=== PATIENT | female | born 1980 | race Caucasian/White ===

== ENCOUNTER 2017-09-17 12:17 | Emergency (ER) | payer MEDICAID ==
[~2017-09-17 12:17] MED LIST: ASPI325T PO; HYDR-4197 PO
[2017-09-17 12:30] VITALS: BP 107/52; PULSE 75; RESP 16; TEMP 98; O2SAT 96
[2017-09-17] MEDS ORDERED: SULFAMETHOXAZOLE-TRIMETHOPRIM DS 800-160 MG TAB PO ONE (14:00)
[2017-09-17] MEDS ORDERED: CEPHALEXIN MONOHYDRATE 500 MG CAP PO ONE (14:00)
[2017-09-17] MEDS ORDERED: ASPI-183 PO (14:01)
--- NOTE | 2017-09-17 14:03 | PD ---
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 Says this lesion has been present for approximately 1 week and says that she was in the shower today when some pus came out however, says that the area continues to feel fluctuant and believes are still some infectious process in her thigh. She denies any numbness tingling. There is tenderness to palpation of the lesion. Says that she has been feeling somewhat feverish with chills. Says she has a history of sepsis which is another reason why she come to the emergency department for evaluation. Says she has an allergy to azithromycin and ciprofloxacin for antibiotics. 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 Patient does follow specialist as an outpatient. Patient says she also has a history of anxiety and picks her skin. Says that her scars a result of this condition. 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.) Anxiety: Yes Depression: Yes Cardiac Catheterization: Yes Cardiovascular Problems: Yes High Cholesterol: No Chest Pain: No Cerebrovascular Accident: Yes Diabetes: Yes Patient Takes Glucophage: No Diminished Hearing: Yes (LEFT EAR) Endocrine: Yes (INFO FROM MR/ SEE ER REPORTS) GERD: No Headaches: Yes Hepatitis: Yes (HEP C) Hypertension: No Immune Disorder: No Implanted Vascular Access Dvce: No Kidney Stones: Yes Musculoskeletal: Yes (INFO FROM MR/ SEE ER REPORTS) Neurologic: Yes (INFO FROM MR/ SEE ER REPORTS) Psychiatric: Yes Respiratory: Yes (INFO FROM MR/ SEE ER REPORTS) Integumentary: No Immunizations Current: Yes Migraines: No Seizures: No Sleep Apnea: Yes (DOES NOT USE A CPAP) Ulcer: No PNEUMOCCOCAL Vaccine (Year): 2 ?: Not Menopausal: No : 3 Para: 3 Tubal Ligation: Yes Past Surgical History Abdominal Surgery: Yes ( BOWEL RESECTION) Cardiac Surgery: No Section: Yes (X 3) Cholecystectomy: Yes Coronary Artery Bypass Graft: Yes Ear Surgery: No Eye Surgery: No Gynecologic Surgery: Yes (3 C SECTIONS) Neurologic Surgery: Yes (SPINAL FUSION) Pacemaker: No Thoracic Surgery: No Other Surgery: Yes (INFO FROM MR/ SEE ER REPORTS) Social History Alcohol Use: No Tobacco Use: Yes (1 ppd) Substance Use: No (PATIENT DENIES) Allergies-Medications (Allergen,Severity, Reaction): Coded Allergies: azithromycin (Unverified Allergy, Severe, abd pain, 09/17/17) ciprofloxacin (Unverified Allergy, Severe, RASH, 09/17/17) cyclobenzaprine (Unverified Allergy, Severe, hives, 09/17/17) diatrizoate meglumine (Unverified Allergy, Severe, Headache, 09/17/17) SEVERE PRESSURE IN HEAD, FELT LIKE EYE WERE GOING TO POP OUT, FOLDER SEAMER AUTOMATIC STATED TO PT IS IS AN ALLERGIC REACTION gadobenic acid (Unverified Allergy, Severe, Headache, 09/17/17) SEVERE PRESSURE IN HEAD, FELT LIKE EYE WERE GOING TO POP OUT, FOLDER SEAMER AUTOMATIC STATED TO PT IS IS AN ALLERGIC REACTION gadodiamide (Unverified Allergy, Severe, Headache, 09/17/17) SEVERE PRESSURE IN HEAD, FELT LIKE EYE WERE GOING TO POP OUT, FOLDER SEAMER AUTOMATIC STATED TO PT IS IS AN ALLERGIC REACTION gadoteridol (Unverified Allergy, Severe, Headache, 09/17/17) SEVERE PRESSURE IN HEAD, FELT LIKE EYE WERE GOING TO POP OUT, FOLDER SEAMER AUTOMATIC STATED TO PT IS IS AN ALLERGIC REACTION iodixanol (Unverified Allergy, Severe, Headache, 09/17/17) SEVERE PRESSURE IN HEAD, FELT LIKE EYE WERE GOING TO POP OUT, FOLDER SEAMER AUTOMATIC STATED TO PT IS IS AN ALLERGIC REACTION iohexol (Unverified Allergy, Severe, Headache, 09/17/17) SEVERE PRESSURE IN HEAD, FELT LIKE EYE WERE GOING TO POP OUT, FOLDER SEAMER AUTOMATIC STATED TO PT IS IS AN ALLERGIC REACTION diclofenac (Unverified Adverse Reaction, Severe, Bleeding, 09/17/17) etodolac (Unverified Adverse Reaction, Severe, Bleeding, 09/17/17) flurbiprofen (Unverified Adverse Reaction, Severe, Bleeding, 09/17/17) ibuprofen (Unverified Adverse Reaction, Severe, Bleeding, 09/17/17) indomethacin (Unverified Adverse Reaction, Severe, Bleeding, 09/17/17) ketoprofen (Unverified Adverse Reaction, Severe, Bleeding, 09/17/17) ketorolac (Unverified Adverse Reaction, Severe, Bleeding, 09/17/17) naproxen (Unverified Adverse Reaction, Severe, Bleeding, 09/17/17) oxaprozin (Unverified Adverse Reaction, Severe, Bleeding, 09/17/17) Reported Meds & Prescriptions Reported Meds & Active Scripts Active Keflex (Cephalexin) 500 Mg Cap 500 Mg PO Q8H 7 Days Bactrim DS (Sulfamethoxazole-Trimethoprim) 800-160 Mg Tab 1 Tab PO BID 7 Days Reported Aspirin 325 Mg Tab 325 Mg PO DAILY Review of Systems Except as stated in HPI: all other systems reviewed are Neg Physical Exam Narrative GENERAL: Well-nourished, well-developed patient. SKIN: Focused skin assessment warm/dry. Right medial aspect of thigh-5 cm round fluctuant area with central ulceration. No expression of fluid. Erythema limited to the lesion. Diffuse, multiple healed scars HEAD: Normocephalic. EYES: No scleral icterus. No injection or drainage. NECK: Supple, trachea midline. No JVD or lymphadenopathy. CARDIOVASCULAR: Regular rate and rhythm without murmurs, gallops, or rubs. RESPIRATORY: Breath sounds equal bilaterally. No accessory muscle use. MUSCULOSKELETAL: No cyanosis, or edema. R BKA present- unable to palpate pulse (note she says this is normal for her) BACK: Nontender without obvious deformity. No CVA tenderness. 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 Says this lesion has been present for approximately 1 week and says that she was in the shower today when some pus came out however, says that the area continues to feel fluctuant and believes are still some infectious process in her thigh. She denies any numbness tingling. There is tenderness to palpation of the lesion. Says that she has been feeling somewhat feverish with chills. Says she has a history of sepsis which is another reason why she come to the emergency department for evaluation. Says she has an allergy to azithromycin and ciprofloxacin for antibiotics. 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 Patient does follow specialist as an outpatient. Patient says she also has a history of anxiety and picks her skin. Says that her scars a result of this condition. Vital signs stable. Physical exam findings consistent with an abscess versus cellulitis Incision and drainage performed. Patient will receive antibiotics for outpatient use. She received her first dose in the emergency department today. Because patient is a below the knee amputee, crutches were prescribed to avoid using her prosthetic while the lesion is healing. She is advised to follow-up with her primary care physician. Advised to return for wound check if she is unable to follow-up with her primary care physician. Take all medications as prescribed. Return to the emergency department for worsening or persistent symptoms. Procedures Procedure Narrative INCISION AND DRAINAGE OF ABSCESS: The area was prepped and was sterilely draped. A subcutaneous wheal of 1 % Xylocaine without epinephrine with a total number 1 mL was used to anesthetize the area properly. A number 11 scalpel was used to make a 1-cm incision across the area of the abscess. The abscess was drained, complex loculations were broken down, and irrigated with normal saline. Half inch iodoform packing was placed in the wound. Sterile dressing applied. Patient advised to have packing removed in two days. Diagnosis Primary Impression: Abscess Additional Impression: Cellulitis Qualified Codes: L03.115 - Cellulitis of right lower limb Referrals: Primary Care Physician Additional Instructions: Follow up with your primary care physician within 2-3 days. Keep area clean and dry for 24 hours. After 24 hours, you may bathe as normal but dry the area thoroughly. You may use [id number] triple antibiotic ointments for your injury daily. Change dressings daily. You may remove the gauze after 24-48 hours. If you developed increased redness, swelling, or pain return to the emergency department as this could be a sign of infection. Received her first doses of antibiotics while in the emergency department today. Take the next dose tonight. Scripts Cephalexin (Keflex) 500 Mg Cap 500 MG PO Q8H for Infection for 7 Days, #21 CAP 0 Refills Prov: Daniel Putnam MD 09/17/17 Sulfamethoxazole-Trimethoprim (Bactrim DS) 800-160 Mg Tab 1 TAB PO BID for Infection for 7 Days, #14 TAB 0 Refills Prov: Daniel Putnam MD 09/17/17 Disposition: 01 DISCHARGE HOME Condition: Stable Elena Smith Sep 17, 2017 14:03
[2017-09-17] MEDS ORDERED: CEPH-460 PO (14:24)
[2017-09-17] MEDS ORDERED: BACT800T5 PO (14:24)
== END 2017-09-17 15:02 | disposition home or self-care (01) ==
LOC: PHEFT 12:17
DX: L02.415 Cutaneous abscess of right lower limb (principal); L03.115 Cellulitis of right lower limb; F17.200 Nicotine dependence, unspecified, uncomplicated; Z89.511 Acquired absence of right leg below knee
CPT/HCPCS: 10060; 99283; E0113

== ENCOUNTER 2017-11-05 18:41 | Inpatient (IN) | payer MEDICARE, MEDICAID, OTHER ==
[~2017-11-05] VITALS: Ht 182.9 cm; Wt 80.2 kg
[~2017-11-05 18:41] MED LIST changes: +ASPI-183 PO; -ASPI325T PO; +BACT800T5 PO; +CEPH-460 PO; -HYDR-4197 PO
[2017-11-05 19:05] VITALS: BP 129/72; PULSE 90; RESP 18; TEMP 98.3
[2017-11-05] MEDS ORDERED: DILA4TAB10 PO (19:05)
[2017-11-05] MEDS ORDERED: XANA2TAB2 PO (19:05)
--- NOTE | 2017-11-05 21:04 | PD ---
HPI Chief Complaint: Psychiatric Symptoms Time Seen by Provider: 20:13 Travel History International Travel<30 days: No Contact w/Intl Traveler<30days: No Traveled to known affect area: No History of Present Illness HPI 37-year-old white female presents emergency department under [employer] act by [employer]. The patient states that she is increasingly depressed over her medical conditions as well as her substance abuse. She is currently homeless. Patient states that she attempted to overdose on methamphetamine last night but unfortunately she has a very high tolerance to drugs and it did not harm her. She also states that she has intermittent abscesses and performed her own incision and drainage on her left forearm and right flank abscess. She states that she use an X-Acto knife and expressed a large amount of pus. She states that she does these crazy things when she is high on methamphetamine. She denies any other procedures. She does have a history of chronic clotting disorder with multiple, multiple surgeries. She currently denies any fever chills. She suffers from chronic abdominal pain and takes Dilaudid and Xanax for anxiety. Patient also states that she uses IV methamphetamine and IV crack cocaine. No homicidal ideation. She denies any active nausea or vomiting. She has chronic abdominal pain and diarrhea. 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.) Anxiety: Yes Depression: Yes Cardiac Catheterization: Yes Cardiovascular Problems: Yes High Cholesterol: No Chemotherapy: No Chest Pain: No Cerebrovascular Accident: No Diabetes: Yes Diminished Hearing: Yes (LEFT EAR) Endocrine: Yes (INFO FROM MR/ SEE ER REPORTS) GERD: No Headaches: Yes Hepatitis: Yes (HEP C) Hypertension: No Immune Disorder: No Implanted Vascular Access Dvce: No Kidney Stones: Yes Musculoskeletal: Yes (INFO FROM MR/ SEE ER REPORTS) Neurologic: Yes (INFO FROM MR/ SEE ER REPORTS) Psychiatric: Yes Respiratory: No Integumentary: No Immunizations Current: Yes Migraines: No Seizures: No Sleep Apnea: Yes (DOES NOT USE A CPAP) Ulcer: No PNEUMOCCOCAL Vaccine (Year): 2 ?: Not Menopausal: No : 3 Para: 3 Tubal Ligation: Yes Past Surgical History Abdominal Surgery: Yes ( BOWEL RESECTION) Cardiac Surgery: No Section: Yes (X 3) Cholecystectomy: Yes Coronary Artery Bypass Graft: Yes Ear Surgery: No Eye Surgery: No Gynecologic Surgery: Yes (3 C SECTIONS) Hysterectomy: No (TUBAL) Neurologic Surgery: Yes (SPINAL FUSION) Pacemaker: No Thoracic Surgery: No Other Surgery: Yes (INFO FROM MR/ SEE ER REPORTS) Social History Alcohol Use: No Tobacco Use: Yes (1 ppd) Substance Use: No (PATIENT DENIES) Allergies-Medications (Allergen,Severity, Reaction): Coded Allergies: azithromycin (Unverified Allergy, Severe, abd pain, 11/05/17) ciprofloxacin (Unverified Allergy, Severe, RASH, 11/05/17) cyclobenzaprine (Unverified Allergy, Severe, hives, 11/05/17) diatrizoate meglumine (Unverified Allergy, Severe, Headache, 09/17/17) SEVERE PRESSURE IN HEAD, FELT LIKE EYE WERE GOING TO POP OUT, INVESTMENT BANKING ASSOCIATE STATED TO PT IS IS AN ALLERGIC REACTION diphenhydramine (Verified Allergy, Severe, 11/05/17) gadobenic acid (Unverified Allergy, Severe, Headache, 09/17/17) SEVERE PRESSURE IN HEAD, FELT LIKE EYE WERE GOING TO POP OUT, INVESTMENT BANKING ASSOCIATE STATED TO PT IS IS AN ALLERGIC REACTION gadodiamide (Unverified Allergy, Severe, Headache, 09/17/17) SEVERE PRESSURE IN HEAD, FELT LIKE EYE WERE GOING TO POP OUT, INVESTMENT BANKING ASSOCIATE STATED TO PT IS IS AN ALLERGIC REACTION gadoteridol (Unverified Allergy, Severe, Headache, 09/17/17) SEVERE PRESSURE IN HEAD, FELT LIKE EYE WERE GOING TO POP OUT, INVESTMENT BANKING ASSOCIATE STATED TO PT IS IS AN ALLERGIC REACTION iodixanol (Unverified Allergy, Severe, Headache, 09/17/17) SEVERE PRESSURE IN HEAD, FELT LIKE EYE WERE GOING TO POP OUT, INVESTMENT BANKING ASSOCIATE STATED TO PT IS IS AN ALLERGIC REACTION iohexol (Unverified Allergy, Severe, Headache, 09/17/17) SEVERE PRESSURE IN HEAD, FELT LIKE EYE WERE GOING TO POP OUT, INVESTMENT BANKING ASSOCIATE STATED TO PT IS IS AN ALLERGIC REACTION NSAIDS (Non-Steroidal Anti-Inflamma (Verified Allergy, Unknown, 11/05/17) diclofenac (Unverified Adverse Reaction, Severe, Bleeding, 09/17/17) etodolac (Unverified Adverse Reaction, Severe, Bleeding, 09/17/17) flurbiprofen (Unverified Adverse Reaction, Severe, Bleeding, 09/17/17) ibuprofen (Unverified Adverse Reaction, Severe, Bleeding, 09/17/17) indomethacin (Unverified Adverse Reaction, Severe, Bleeding, 09/17/17) ketoprofen (Unverified Adverse Reaction, Severe, Bleeding, 09/17/17) ketorolac (Unverified Adverse Reaction, Severe, Bleeding, 09/17/17) naproxen (Unverified Adverse Reaction, Severe, Bleeding, 09/17/17) oxaprozin (Unverified Adverse Reaction, Severe, Bleeding, 09/17/17) Reported Meds & Prescriptions Reported Meds & Active Scripts Active Keflex (Cephalexin) 500 Mg Cap 500 Mg PO Q8H 7 Days Bactrim DS (Sulfamethoxazole-Trimethoprim) 800-160 Mg Tab 1 Tab PO BID 7 Days Reported Dilaudid (Hydromorphone HCl) 4 Mg Tab 4 Mg PO Q6H PRN Xanax (Alprazolam) 2 Mg Tab 2 Mg PO Q8H PRN Aspirin 325 Mg Tab 325 Mg PO DAILY Review of Systems General / Constitutional: No: Fever Eyes: No: Visual changes HENT: No: Headaches Cardiovascular: No: Chest Pain or Discomfort Respiratory: No: Shortness of Breath Gastrointestinal: Positive: Diarrhea, Abdominal Pain Genitourinary: No: Dysuria Musculoskeletal: Positive: Arthralgias, Pain Skin: Positive Rash Neurologic: No: Weakness Psychiatric: Positive: Anxiety, Depression, Suicidal Ideations, Mood Disorder, Substance Abuse, No: Disorder of Thought, Homicidal Ideation Endocrine: No: Polydipsia Hematologic/Lymphatic: No: Easy Bruising Physical Exam Narrative GENERAL: Well-nourished, well-developed patient. SKIN: Warm and dry. Patient has multiple scabs from picking. She has a abscess to her left dorsal forearm which she had performed incision and drainage on. This is been decompressed. She also has an incision on her right flank. There is no drainage. Minimal erythema. Patient also has a small nonhealing superficial dermal lesion to the right lower leg just below the knee where her prosthesis attaches. There is no signs of infection. HEAD: Normocephalic and atraumatic. EYES: No scleral icterus. No injection or drainage. ENT: No nasal drainage noted. Mucous membranes pink. Airway patent. NECK: Supple, trachea midline. Moves head freely without obvious discomfort. CARDIOVASCULAR: Regular rate and rhythm without murmurs, gallops, or rubs. RESPIRATORY: Breath sounds equal bilaterally. No accessory muscle use. GASTROINTESTINAL: Abdomen soft, non-tender, nondistended. EXTREMITIES: No cyanosis or edema. Below the knee amputation on the right BACK: Nontender without obvious deformity. No CVA tenderness. NEURO: Patient is alert and oriented. no sensorimotor deficits. Nonfocal. Normal speech. PSYCH: No delusions. No auditory or visual hallucinations. Data Data Last Documented VS Vital Signs Date Time Temp Pulse Resp B/P (MAP) Pulse Ox O2 Delivery O2 Flow Rate FiO2 11/06/17 02:22 73 20 106/53 (70) 98 Room Air 11/05/17 19:05 98.3 Orders Orders Complete Blood Count With Diff (11/05/17 20:07) Comprehensive Metabolic Panel (11/05/17 20:07) Thyroid Stimulating Hormone (11/05/17 20:07) Psych Screen (11/05/17 20:07) Drug Screen, Random Urine (11/05/17 20:07) Alcohol (Ethanol) (11/05/17 20:07) Salicylates (Aspirin) (11/05/17 20:07) Tylenol (Acetaminophen) (11/05/17 20:07) Sulfamet-Trimeth Ds 800-160 Mg (Bactrim (11/05/17 21:15) Cephalexin (Keflex) (11/05/17 21:15) Resp Lab Draw Arterial Punctur (11/05/17 ) Lorazepam (Ativan) (11/05/17 22:15) Tetanus/Diphtheria Tox Adult (Tetanus/Di (11/05/17 22:15) Alprazolam (Xanax) (11/05/17 22:45) Hydromorphone (Dilaudid) (11/05/17 23:30) Diet Regular Basic (11/06/17 Breakfast) Labs Laboratory Tests Test 11/05/17 19:57 11/05/17 21:44 Urine Opiates Screen POS Urine Barbiturates Screen NEG Urine Amphetamines Screen POS Urine Benzodiazepines Screen NEG Urine Cocaine Screen POS Urine Cannabinoids Screen NEG White Blood Count 7.2 TH/MM3 Red Blood Count 3.71 MIL/MM3 Hemoglobin 11.2 GM/DL Hematocrit 33.7 % Mean Corpuscular Volume 90.9 FL Mean Corpuscular Hemoglobin 30.1 PG Mean Corpuscular Hemoglobin Concent 33.1 % Red Cell Distribution Width 14.2 % Platelet Count 454 TH/MM3 Mean Platelet Volume 7.1 FL Neutrophils (%) (Auto) 66.6 % Lymphocytes (%) (Auto) 21.2 % Monocytes (%) (Auto) 7.6 % Eosinophils (%) (Auto) 3.5 % Basophils (%) (Auto) 1.1 % Neutrophils # (Auto) 4.8 TH/MM3 Lymphocytes # (Auto) 1.5 TH/MM3 Monocytes # (Auto) 0.5 TH/MM3 Eosinophils # (Auto) 0.3 TH/MM3 Basophils # (Auto) 0.1 TH/MM3 CBC Comment DIFF FINAL Differential Comment Blood Urea Nitrogen 8 MG/DL Creatinine 0.96 MG/DL Random Glucose 117 MG/DL Total Protein 8.5 GM/DL Albumin 3.2 GM/DL Calcium Level 8.7 MG/DL Alkaline Phosphatase 128 U/L Aspartate Amino Transf (AST/SGOT) 24 U/L Alanine Aminotransferase (ALT/SGPT) 21 U/L Total Bilirubin 0.3 MG/DL Sodium Level 135 MEQ/L Potassium Level 3.6 MEQ/L Chloride Level 101 MEQ/L Carbon Dioxide Level 24.0 MEQ/L Anion Gap 10 MEQ/L Estimat Glomerular Filtration Rate 65 ML/MIN Thyroid Stimulating Hormone 3rd Gen 0.945 uIU/ML Salicylates Level 2.8 MG/DL Acetaminophen Level LESS THAN 2.0 MCG/ML Ethyl Alcohol Level LESS THAN 3 MG/DL MDM Medical Decision Making Medical Screen Exam Complete: Yes Emergency Medical Condition: Yes Medical Record Reviewed: Yes Interpretation(s) Laboratory Tests Test 11/05/17 19:57 11/05/17 21:44 Urine Opiates Screen POS Urine Barbiturates Screen NEG Urine Amphetamines Screen POS Urine Benzodiazepines Screen NEG Urine Cocaine Screen POS Urine Cannabinoids Screen NEG White Blood Count 7.2 TH/MM3 Red Blood Count 3.71 MIL/MM3 Hemoglobin 11.2 GM/DL Hematocrit 33.7 % Mean Corpuscular Volume 90.9 FL Mean Corpuscular Hemoglobin 30.1 PG Mean Corpuscular Hemoglobin Concent 33.1 % Red Cell Distribution Width 14.2 % Platelet Count 454 TH/MM3 Mean Platelet Volume 7.1 FL Neutrophils (%) (Auto) 66.6 % Lymphocytes (%) (Auto) 21.2 % Monocytes (%) (Auto) 7.6 % Eosinophils (%) (Auto) 3.5 % Basophils (%) (Auto) 1.1 % Neutrophils # (Auto) 4.8 TH/MM3 Lymphocytes # (Auto) 1.5 TH/MM3 Monocytes # (Auto) 0.5 TH/MM3 Eosinophils # (Auto) 0.3 TH/MM3 Basophils # (Auto) 0.1 TH/MM3 CBC Comment DIFF FINAL Differential Comment Blood Urea Nitrogen 8 MG/DL Creatinine 0.96 MG/DL Random Glucose 117 MG/DL Total Protein 8.5 GM/DL Albumin 3.2 GM/DL Calcium Level 8.7 MG/DL Alkaline Phosphatase 128 U/L Aspartate Amino Transf (AST/SGOT) 24 U/L Alanine Aminotransferase (ALT/SGPT) 21 U/L Total Bilirubin 0.3 MG/DL Sodium Level 135 MEQ/L Potassium Level 3.6 MEQ/L Chloride Level 101 MEQ/L Carbon Dioxide Level 24.0 MEQ/L Anion Gap 10 MEQ/L Estimat Glomerular Filtration Rate 65 ML/MIN Thyroid Stimulating Hormone 3rd Gen 0.945 uIU/ML Salicylates Level 2.8 MG/DL Acetaminophen Level LESS THAN 2.0 MCG/ML Ethyl Alcohol Level LESS THAN 3 MG/DL Differential Diagnosis MDM: High Differential diagnoses: Schizophrenia, schizoaffective disorder, bipolar, anxiety, depression, adjustment reaction, mood disorder NOS, ODD, depressive disorder NOS, psychosis NOS, substance induced mood disorder, infection, electrolyte abnormality, malingering. Narrative Course Mental health screening discussed with the patient. Psychiatric screen ordered. The patient will be continued on her Keflex and Bactrim. She has performed her own incision and drainage of abscesses. Patient also has reservations regarding her chronic pain and getting her Dilaudid and Xanax. Diagnosis Primary Impression: Medical clearance for psychiatric admission Additional Impressions: Skin abscess Qualified Codes: L02.91 - Cutaneous abscess, unspecified IV drug abuse Condition: Nj Gutierrez Nov 05, 2017 21:04
[2017-11-05] MEDS ORDERED: SULFAMETHOXAZOLE-TRIMETHOPRIM DS 800-160 MG TAB PO ONE (21:15)
[2017-11-05] MEDS ORDERED: CEPHALEXIN MONOHYDRATE 500 MG CAP PO ONE (21:15)
[2017-11-05 22:03] LABS: AUTOMATED NEUTROPHIL # 4.8 TH/MM3 (1.8-7.7); BASOPHIL # 0.1 TH/MM3 (0-0.2); BASOPHIL % 1.1 % (0.0-2.0); EOSINOPHIL # 0.3 TH/MM3 (0-0.4); EOSINOPHIL % 3.5 % (0.0-4.0); HEMATOCRIT 33.7 % (35.0-46.0); HEMOGLOBIN 11.2 GM/DL (11.6-15.3); LYMPH % 21.2 % (9.0-44.0); LYMPHOCYTE # 1.5 TH/MM3 (1.0-4.8); MEAN CELL VOLUME 90.9 FL (80.0-100.0); MEAN CORPUSCULAR HEMOGLOBIN 30.1 PG (27.0-34.0); MEAN CORPUSCULAR HGB CONC 33.1 % (32.0-36.0); MEAN PLATELET VOLUME 7.1 FL (7.0-11.0); MONO % 7.6 % (0.0-8.0); MONOCYTE # 0.5 TH/MM3 (0-0.9); NEUT % 66.6 % (16.0-70.0); PLATELET COUNT 454 TH/MM3 (150-450); RED BLOOD COUNT 3.71 MIL/MM3 (4.00-5.30); RED CELL DISTRIBUTION WIDTH 14.2 % (11.6-17.2); WHITE BLOOD COUNT 7.2 TH/MM3 (4.0-11.0)
[2017-11-05] MEDS ORDERED: LORazepam 2 MG TAB PO ONE (22:15)
[2017-11-05] MEDS ORDERED: TETANUS/DIPHTHERIA TOXOID ADULT 0.5 ML VIAL IM ONE (22:15)
[2017-11-05 22:27] LABS: ACETAMINOPHEN LESS THAN 2.0 MCG/ML (10.0-30.0); ALBUMIN 3.2 GM/DL (3.4-5.0); ALKALINE PHOSPHATASE 128 U/L (45-117); ALT (GPT) 21 U/L (10-53); AST (GOT) 24 U/L (15-37); BLOOD UREA NITROGEN 8 MG/DL (7-18); CALCIUM 8.7 MG/DL (8.5-10.1); CHLORIDE 101 MEQ/L (98-107); CREATININE 0.96 MG/DL (0.50-1.00); GLOMERULAR FILTRATION RATE 65 ML/MIN (>89); GLUCOSE,RANDOM 117 MG/DL (74-106); SODIUM (NA) 135 MEQ/L (136-145); TOTAL BILIRUBIN ADULT 0.3 MG/DL (0.2-1.0); TOTAL PROTEIN 8.5 GM/DL (6.4-8.2)
[2017-11-05] MEDS ORDERED: ALPRAZolam 1 MG TAB PO ONE (22:45)
[2017-11-05] MEDS ORDERED: HYDROmorphone HCL 2 MG TAB PO ONE (23:30)
[2017-11-06 02:22] VITALS: BP 106/53; PULSE 73; RESP 20; O2SAT 98
[2017-11-06] MEDS ORDERED: FLUMAZENIL 0.5 MG/5 ML VIAL IV PUSH PRN (08:00)
[2017-11-06] MEDS ORDERED: NICOTINE 21 MG/24 HR PATCH T-DERMAL PRN (08:00)
[2017-11-06] MEDS ORDERED: ONDANSETRON ODT 4 MG TAB PO PRN (08:00)
[2017-11-06] MEDS ORDERED: ALUMINUM/MAGNESIUM/SIMETH 30 ML CUP PO PRN (08:00)
[2017-11-06] MEDS ORDERED: BENZTROPINE MESYLATE 1 MG TAB PO PRN (08:00)
[2017-11-06] MEDS ORDERED: ACETAMINOPHEN 325 MG TAB PO PRN (08:00)
[2017-11-06] MEDS ORDERED: cloNIDine HCL 0.1 MG TAB PO PRN (08:00)
[2017-11-06] MEDS ORDERED: BENZTROPINE MESYLATE 2 MG/2 ML VIAL IM PRN (08:00)
[2017-11-06] MEDS ORDERED: LORazepam 2 MG/ML VIAL IM PRN ×3 (08:00)
[2017-11-06] MEDS ORDERED: LOPERAMIDE HCL 2 MG CAP PO PRN (08:00)
[2017-11-06] MEDS ORDERED: LORazepam 1 MG TAB PO PRN (08:00)
[2017-11-06] MEDS ORDERED: MAGNESIUM HYDROXIDE SUSP 30 ML CUP PO PRN (08:00)
--- NOTE | 2017-11-06 08:06 | HHI.HP ---
Provisional Diagnosis Admission Date 11/06/2017 [place]. 1. Adjustment disorder with depressed mood Rule out drug-induced mood disorder Rule out malingering for controlled substances Rule out primary mood disorder 2. Polysubstance abuse [place] II. Deferred Certification of Person's Competence To Provide Express and Informed Consent I have personally examined Haily Bowden , a person being served at [facility] on, Nov 06, 2017 07:43. Express and informed consent means consent voluntarily given in writing, by a competent person, after sufficient explanation and disclosure of the subject matter involved to enable the person to make a knowing and willful decision without any element of force, fraud, deceit, duress, or other form of constraint or coercion. This person is 18 years of age or older, is not now known to be incompetent to consent to treatment with a guardian advocate, and does not have a health care surrogate or proxy currently making medical treatment decisions. I have found this person to be one of the following: [x] Competent to provide express and informed consent, as defined above, for voluntary admission to this facility and is competent to provide express and informed consent for treatment. He/she has the consistent capacity to make well reasoned, willful, and knowing decisions concerning his or her medical or mental health treatment. The person fully and consistently understands the purpose of the admission for examination/placement and is fully capable of personally exercising all rights assured [place] [] Incompetent to provide express and informed consent to voluntary admission, and this is incompetent to provide express and informed consent to treatment. The person must be transferred to involuntary status and a petition for a guardian advocate filed with the Circuit Court. [] Refusing to provide express and informed consent to voluntary admission but is competent to provide express and informed consent for treatment. The person must be discharged or transferred to involuntary status. Form shall be completed within 24 hours of a person's arrival at the receiving facility and filed in the clinical record of each person: 1. Admitted on a voluntary basis 2. Permitted to provide express and informed consent to his/her own treatment 3. Allowed to transfer from involuntary to voluntary status 4. Prior to permitting a person to consent to his or her own treatment after having been previously found incompetent to consent to treatment. History of Present Illness Capacity: Has Capacity Psych Chief Complaint: Depression, SI HPI Ms. Bowden is a 37-year-old female with a reported history of bipolar disorder and substance use issues who presents under a [place] act by law enforcement alleging suicidal ideation. Patient's urine toxicology was positive for opiates , amphetamines and cocaine. Reviewing the electronic medical record, I note that the patient was seen most recently by the psychiatric nurse practitioner in 2016. Patient seen and examined. Chart reviewed. Case discussed with nursing staff. On my examination today, the patient is somewhat medication seeking for controlled substances. Presentation is somewhat manipulative. She appears quite dysphoric though and says "I am exceptionally depressed right now. I have no desire to continue. I am tired of hurting right now." She says that she tried to overdose by snorting 1 g of heroin 2 days ago in a reported suicide attempt. Patient notes that she is "quite pissed off that I woke up." She endorses ongoing suicidal ideation but denies any urge to hurt herself on the inpatient unit. She says that she is coming here to look for help for her psychiatric condition. No hypomanic or manic symptoms now. She denies any audiovisual hallucinations. She does say that she struggles with some intermittent paranoia but says that this comes with using methamphetamine. Remainder of the psychiatric ROS is negative. Patient has chronic pain complaints but no acute physical complaints. Past psychiatric history: The patient reports a history of bipolar disorder. She is not under the care of an outpatient psychiatrist presently. Most recent psychiatric admission was reportedly a few years ago. Most recent suicide attempt was approximately 2 days ago as noted above. Patient notes that she has been on lithium in the past but struggled with therapeutic blood level monitoring with this agent because of difficulty in finding an adequate vein secondary to her substance use history. Family history: Patient denies any family history of mental illness or suicide. Chemical dependency history: Patient maintains that her use of Dilaudid and Xanax is appropriate. She does admit to abuse of amphetamines and cocaine noting "I abuse them very much." No other substance use reported. Social history: Patient lives with friends. She is single with no children. She is college educated and reports that she has previously worked as a nurse and also doing [employer]. She denies any history. Denies any active legal issues. Denies any access to guns or firearms. Denies any zoroastrianism or spiritual beliefs. Denies any history of physical, verbal or sexual abuse. E-FORCSE report reviewed: Multisourcing noted. Early refills noted Rx Fill Date Drug Name Qty Days Prescriber First Name Prescriber Last Name 10/30/2017 HYDROMORPHONE 4 MG TABLET 24 4 SANDEE WOODS MD 10/30/2017 ALPRAZOLAM 2 MG TABLET 24 8 SANDEE WOODS MD 10/23/2017 BUPRENORPHINE 8 MG TABLET SL 15 7 DEVEN CHAVES JR, MD 09/19/2017 ALPRAZOLAM 2 MG TABLET 24 8 SANDEE WOODS MD 09/19/2017 HYDROMORPHONE 4 MG TABLET 24 5 SANDEE WOODS MD 08/30/2017 HYDROMORPHONE 4 MG TABLET 24 4 Sandee Woods 08/30/2017 ALPRAZOLAM 2 MG TABLET 24 8 Sandee Woods 06/24/2017 HYDROMORPHONE 4 MG TABLET 24 4 Sandee Woods 06/24/2017 [facility] Z[facility] TARTRATE 10 MG TABLET 30 30 Winston Morocho 06/17/2017 EMBEDA ER 20-0.8 [facility]SULE [facility] 1 MG TABLET 10 3 Trixie Salazar 06/11/2017 OXYCODONE-ACETAMINOPHEN 10-325 90 30 [facility] 06/03/2017 EMBEDA ER 20-0.8 MG CAPSULE 30 15 [facility]2017 METHADONE HCL 10 MG TABLET 42 [address] [facility] 05/14/2017 OXYCODONE-ACETAMINOPHEN 10-325 90 30 [facility] 05/13/2017 ALPRAZOLAM 1 MG TABLET 18 3 Virgilio Prince 05/12/2017 ALPRAZOLAM 2 MG TABLET 30 10 [facility] 05/08/2017 HYDROMORPHONE 4 MG TABLET 30 5 [facility] 05/04/2017 ALPRAZOLAM 2 MG TABLET 30 10 [facility] 05/04/2017 HYDROMORPHONE 8 MG TABLET 18 3 Virgilio Prince 04/30/2017 HYDROMORPHONE 4 MG TABLET 30 5 [facility] 04/24/2017 ZOLPIDEM TARTRATE 10 MG TABLET 30 30 [place] 04/24/2017 ALPRAZOLAM 2 MG TABLET 24 8 [facility] 04/23/2017 HYDROMORPHONE 4 MG TABLET 24 6 [facility] 04/21/2017 ALPRAZOLAM 2 MG TABLET 30 10 [facility] 04/18/2017 HYDROMORPHONE 4 MG TABLET 30 5 [facility] 04/12/2017 ALPRAZOLAM 2 MG TABLET 30 10 [facility] 04/12/2017 HYDROMORPHONE 4 MG TABLET 24 4 [facility] 04/05/2017 HYDROMORPHONE 8 MG TABLET 30 5 Kamari Holm 04/05/2017 ALPRAZOLAM 2 MG TABLET 21 7 Kamari Holm 03/02/2017 HYDROMORPHONE 8 MG TABLET 30 5 [facility] 03/02/2017 ALPRAZOLAM 2 MG TABLET 15 5 [facility] 02/27/2017 ZOLPIDEM TARTRATE 10 MG TABLET 30 30 [facility] 02/15/2017 ALPRAZOLAM 2 MG TABLET 30 10 [facility] 02/15/2017 HYDROMORPHONE 4 MG TABLET 30 5 [facility] 02/09/2017 HYDROMORPHONE 8 MG TABLET 30 5 Kamari Holm 02/09/2017 ALPRAZOLAM 2 MG TABLET 24 6 Kamari Holm 02/02/2017 OXYCODONE-ACETAMINOPHEN 10-325 20 5 Ariadna Mclaughlin 01/29/2017 OXYCODONE-ACETAMINOPHEN 5-325 12 2 Mukul Nuñez 01/23/2017 HYDROMORPHONE 4 MG TABLET 6 1 [facility] 01/22/2017 HYDROMORPHONE 4 MG TABLET 120 10 [facility] 01/20/2017 ALPRAZOLAM 2 MG TABLET 30 7 [facility] 01/17/2017 HYDROMORPHONE 4 MG TABLET 120 6 [facility] 01/14/2017 ALPRAZOLAM 2 MG TABLET 2 1 [facility] 01/13/2017 HYDROMORPHONE 4 MG TABLET 90 6 [facility] 01/10/2017 HYDROMORPHONE 4 MG TABLET 3 1 [facility] 01/10/2017 ALPRAZOLAM 2 MG TABLET 1 1 [facility] 01/09/2017 HYDROMORPHONE 4 MG TABLET 60 3 [facility] 01/05/2017 HYDROMORPHONE 4 MG TABLET 60 3 [facility] 01/01/2017 ALPRAZOLAM 2 MG TABLET 60 15 [facility] 01/01/2017 HYDROMORPHONE 4 MG TABLET 60 3 [facility] 12/28/2016 HYDROMORPHONE 4 MG TABLET 60 3 [facility] 12/27/2016 HYDROMORPHONE 4 MG TABLET 30 3 [facility] 12/24/2016 HYDROMORPHONE 4 MG TABLET 30 3 [facility] 12/20/2016 HYDROMORPHONE 4 MG TABLET 60 5 [facility] 12/19/2016 ALPRAZOLAM 2 MG TABLET 60 15 [facility] 12/15/2016 HYDROMORPHONE 4 MG TABLET 60 5 [facility] 12/12/2016 HYDROMORPHONE 4 MG TABLET 60 5 [facility] 12/08/2016 HYDROMORPHONE 4 MG TABLET 60 5 [facility] 12/05/2016 HYDROMORPHONE 4 MG TABLET 60 5 [facility] 12/04/2016 HYDROMORPHONE 4 MG TABLET 60 5 [facility] 12/02/2016 ALPRAZOLAM 2 MG TABLET 60 15 [facility] 11/27/2016 HYDROMORPHONE 4 MG TABLET 19 1 [facility] 11/27/2016 HYDROMORPHONE 4 MG TABLET 90 7 [facility] 11/21/2016 HYDROMORPHONE 4 MG TABLET 120 6 [facility] 11/15/2016 ALPRAZOLAM 2 MG TABLET 44 15 [facility] 11/14/2016 ALPRAZOLAM 2 MG TABLET 4 15 [facility] 11/13/2016 ALPRAZOLAM 2 MG TABLET 12 15 [facility] 11/13/2016 HYDROMORPHONE 4 MG TABLET 120 6 [facility] 11/06/2016 HYDROMORPHONE 4 MG TABLET 120 6 [facility] Review of Systems Except as stated in HPI: all other systems reviewed are Neg Past Family Social History Coded Allergies: azithromycin (Unverified Allergy, Severe, abd pain, 11/05/17) ciprofloxacin (Unverified Allergy, Severe, RASH, 11/05/17) cyclobenzaprine (Unverified Allergy, Severe, hives, 11/05/17) diatrizoate meglumine (Unverified Allergy, Severe, Headache, 09/17/17) SEVERE PRESSURE IN HEAD, FELT LIKE EYE WERE GOING TO POP OUT, UNEMPLOYMENT BENEFITS CLAIMS TAKER STATED TO PT IS IS AN ALLERGIC REACTION diphenhydramine (Verified Allergy, Severe, 11/05/17) gadobenic acid (Unverified Allergy, Severe, Headache, 09/17/17) SEVERE PRESSURE IN HEAD, FELT LIKE EYE WERE GOING TO POP OUT, UNEMPLOYMENT BENEFITS CLAIMS TAKER STATED TO PT IS IS AN ALLERGIC REACTION gadodiamide (Unverified Allergy, Severe, Headache, 09/17/17) SEVERE PRESSURE IN HEAD, FELT LIKE EYE WERE GOING TO POP OUT, UNEMPLOYMENT BENEFITS CLAIMS TAKER STATED TO PT IS IS AN ALLERGIC REACTION gadoteridol (Unverified Allergy, Severe, Headache, 09/17/17) SEVERE PRESSURE IN HEAD, FELT LIKE EYE WERE GOING TO POP OUT, UNEMPLOYMENT BENEFITS CLAIMS TAKER STATED TO PT IS IS AN ALLERGIC REACTION iodixanol (Unverified Allergy, Severe, Headache, 09/17/17) SEVERE PRESSURE IN HEAD, FELT LIKE EYE WERE GOING TO POP OUT, UNEMPLOYMENT BENEFITS CLAIMS TAKER STATED TO PT IS IS AN ALLERGIC REACTION iohexol (Unverified Allergy, Severe, Headache, 09/17/17) SEVERE PRESSURE IN HEAD, FELT LIKE EYE WERE GOING TO POP OUT, UNEMPLOYMENT BENEFITS CLAIMS TAKER STATED TO PT IS IS AN ALLERGIC REACTION NSAIDS (Non-Steroidal Anti-Inflamma (Verified Allergy, Unknown, 11/05/17) diclofenac (Unverified Adverse Reaction, Severe, Bleeding, 09/17/17) etodolac (Unverified Adverse Reaction, Severe, Bleeding, 09/17/17) flurbiprofen (Unverified Adverse Reaction, Severe, Bleeding, 09/17/17) ibuprofen (Unverified Adverse Reaction, Severe, Bleeding, 09/17/17) indomethacin (Unverified Adverse Reaction, Severe, Bleeding, 09/17/17) ketoprofen (Unverified Adverse Reaction, Severe, Bleeding, 09/17/17) ketorolac (Unverified Adverse Reaction, Severe, Bleeding, 09/17/17) naproxen (Unverified Adverse Reaction, Severe, Bleeding, 09/17/17) oxaprozin (Unverified Adverse Reaction, Severe, Bleeding, 09/17/17) Past Medical History See electronic medical record Active Scripts Cephalexin (Keflex) 500 Mg Cap, 500 MG PO Q8H for Infection for 7 Days, #21 CAP 0 Refills Prov:Daniel Putnam MD 09/17/17 Sulfamethoxazole-Trimethoprim (Bactrim DS) 800-160 Mg Tab, 1 TAB PO BID for Infection for 7 Days, #14 TAB 0 Refills Prov:Daniel Putnam MD 09/17/17 Reported Medications Hydromorphone (Dilaudid) 4 Mg Tab, 4 MG PO Q6H Y for Pain Management, TAB 0 Refills 11/05/17 Alprazolam (Xanax) 2 Mg Tab, 2 MG PO Q8H Y for ANXIETY, TAB 0 Refills 11/05/17 Aspirin (Aspirin) 325 Mg Tab, 325 MG PO DAILY, #30 TAB 0 Refills 09/17/17 Reports that she takes Dilaudid and Xanax at home. Patient's Strengths (min. 2) In a monitored setting. Verbally fluent. Physical Exam Physical exam completed by ED provider. On my examination today, the patient appears to be in mild acute distress. No lacrimation, rhinorrhea or other signs of opiate withdrawal noted. No hand tremor, diaphoresis, other signs of GABAergic withdrawal noted. No signs of intoxication noted. Numerous scars and pock lei on skin. Labs and vital signs reviewed: Vital Signs Vital Signs Date Time Temp Pulse Resp B/P (MAP) Pulse Ox O2 Delivery O2 Flow Rate FiO2 11/06/17 02:22 73 20 106/53 (70) 98 Room Air 11/05/17 19:05 98.3 Lab Results Item Value Date Time White Blood Count 7.2 TH/MM3 11/05/172143 Hemoglobin 11.2 GM/DL L 11/05/172143 Platelet Count 454 TH/MM3 H 11/05/172143 Sodium Level 135 MEQ/L L 11/05/172143 Potassium Level 3.6 MEQ/L 11/05/172143 Chloride Level 101 MEQ/L 11/05/172143 Carbon Dioxide Level 24.0 MEQ/L 11/05/172143 Blood Urea Nitrogen 8 MG/DL 11/05/172143 Creatinine 0.96 MG/DL 11/05/172143 Estimat Glomerular Filtration Rate 65 ML/MIN L 11/05/172143 Aspartate Amino Transf (AST/SGOT) 24 U/L 11/05/172143 Alanine Aminotransferase (ALT/SGPT) 21 U/L 11/05/172143 Alkaline Phosphatase 128 U/L H 11/05/172143 Thyroid Stimulating Hormone 3rd Gen 0.945 uIU/ML 11/05/172143 Urine Opiates Screen POS H 11/05/171956 Urine Amphetamines Screen POS H 11/05/171956 Urine Cocaine Screen POS H 11/05/171956 Ethyl Alcohol Level LESS THAN 3 MG/DL 11/05/172143 Normocytic anemia noted. Appears to be within patient's historical baseline. Elevated alkaline phosphatase noted. Mental Status Examination Appearance: Disheveled Consciousness: Alert Orientation: x4 Motor Activity: Other (Motor exam as above) Speech: Slow Language: Adequate Fund of Knowledge: Adequate Attention and Concentration: Adequate Memory: Unremarkable (Grossly intact on clinical exam) Mood: Other (Dysphoric) Affect: Irritable, Other (Restricted) Thought Process & Associations: Intact, Logical, Linear Thought Content: Appropriate Hallucination Type: None Delusion Type: None Suicidal Ideation: Yes Suicidal Plan: No Suicidal Intention: No (Denies any urge to hurt self on an inpatient unit) Homicidal Ideation: No Homicidal Plan: No Homicidal Intention: No Insight: Fair Judgment: Impulsive Assessment & Plan Problem List: (1) Adjustment disorder with depressed mood ICD Codes: F43.21 - Adjustment disorder with depressed mood (2) Polysubstance abuse ICD Codes: F19.10 - Other psychoactive substance abuse, uncomplicated Assessment & Plan 37-year-old female with psychiatric history as detailed above who presents under [place] act. On my examination today, the patient reports recent suicide attempt and endorses ongoing suicidal ideation now, although she does contract for safety on the inpatient unit. Patient has ongoing dysphoria. Differential diagnosis would include drug-induced mood disorder, zeferino rachel primary mood disorder (possibly bipolar depressed) or symptom exaggeration/malingering for controlled substances. Given ongoing suicidal ideation, I will plan to admit the patient to the inpatient psychiatric unit for safety, observation and stabilization. Admit inpatient. Voluntary status. Initiate Seroquel 50 mg at bedtime for mood stabilization. R/B/A for medications discussed with patient. Check beta hCG and check EKG for QTc. CIWA scale with Ativan for the management of any GABAergic withdrawal. Seizure precautions. Clonidine, Imodium and Zofran for the management of any opiate withdrawal. Consult to the hospitalist for management of medical issues. Continue Keflex and Bactrim. Check follow-up labs in the morning. Vitals every shift. Counselor to see. Disposition planning. Estimated length of stay: 3-5 days. Discharge Planning Pending psychiatric stabilization Request HC Surrog/Guard Advoc?: No Luis Crockett MD Nov 06, 2017 08:06
[2017-11-06] MEDS ORDERED: PILL SPLITTER OTHER PRN (08:45)
[2017-11-06] MEDS ORDERED: REMOVE OLD NICODERM (NICOTINE) PATCH T-DERMAL PRN (08:45)
[2017-11-06] MEDS: THIAMINE HCL 100 MG TAB PO SCH (09:00)
[2017-11-06] MEDS: FOLIC ACID 1 MG TAB PO SCH (09:00)
[2017-11-06] MEDS: ASPIRIN 325 MG TAB PO SCH (09:00)
[2017-11-06] MEDS: MULTIVITAMINS/MINERALS THERAPEUTIC TAB PO SCH (09:00)
[2017-11-06 09:39] VITALS: BP 119/56; PULSE 76; RESP 18; O2SAT 99
--- NOTE | 2017-11-06 12:01 | PD.CONS ---
HPI Service [facility] Consult Requested By Psychiatry service Reason for Consult Medical management skin abscesses history, Primary Care Physician Clif Moore M.D. Diagnoses: History of Present Illness Patient is a 37-year-old female who states that he she is tired of being in pain , being treated like sheath, ready to and apparently reportedly tried to kill herself and was brought in by police and [employer] acted and admitted under psychiatry service for evaluation. Patient had [facility] consulted for history of chronic pain issues, abscesses. Patient on evaluation, seen with psychiatry nurse at bedside is very uncooperative, very angry and hostile behavior, cursing. She denies having fever or chills. When asked about her abscess. Patient states she gets them frequently and lanced lesions periodically.. The last ones that she did lands on her own was the lesion on her right upper abdominal area. She denies any fever or chills. With regards to pain patient states history of chronic pain mainly abdominal pain secondary to mesenteric ischemia. Patient states she sees primary care physician Dr. Moore and had her pain meds refilled prior to this. Patient denies any fever headache nausea vomiting denies any urinary symptoms. Patient states history of chronic loose bowel movements. Review of Systems Constitutional: DENIES: Diaphoretic episodes, Fatigue, Fever, Weight gain, Weight loss, Chills, Dizziness, Change in appetite, Night Sweats Endocrine: DENIES: Abnorml menstrual pattern, Heat/cold intolerance, Polydipsia , Polyuria, Polyphagia Eyes: DENIES: Blurred vision, Diplopia, Eye inflammation, Eye pain, Vision loss , Photosensitivity, Double Vision Ears, nose, mouth, throat: DENIES: Tinnitus, Hearing loss, Vertigo, Nasal discharge, Oral lesions, Throat pain, Hoarseness, Ear Pain, Running Nose, Epistaxis, Sinus Pain, Toothache, Odynophagia Respiratory: DENIES: Apneas, Cough, Snoring, Wheezing, Hemoptysis, Sputum production, Shortness of breath Cardiovascular: DENIES: Chest pain, Palpitations, Syncope, Dyspnea on Exertion , PND, Lower Extremity Edema, Orthopnea, Claudication Gastrointestinal: COMPLAINS OF: Abdominal pain, Diarrhea Genitourinary: DENIES: Abnormal vaginal bleeding, Dysmenorrhea, Dyspareunia, Sexual dysfunction, Urinary frequency, Urinary incontinence, Urgency, Hematuria , Dysuria, Nocturia, Vaginal discharge Musculoskeletal: DENIES: Joint pain, Muscle aches, Stiffness, Joint Swelling, Back pain, Neck pain Integumentary: DENIES: Abnormal pigmentation, Pruritus, Rash, Nail changes, Breast masses, Breast skin changes, Nipple discharge Hematologic/lymphatic: DENIES: Bruising, Lymphadenopathy Immunologic/allergic: DENIES: Eczema, Urticaria Psychiatric: COMPLAINS OF: Suicidal Ideation Past Family Social History Allergies: Coded Allergies: azithromycin (Unverified Allergy, Severe, abd pain, 11/05/17) ciprofloxacin (Unverified Allergy, Severe, RASH, 11/05/17) cyclobenzaprine (Unverified Allergy, Severe, hives, 11/05/17) diatrizoate meglumine (Unverified Allergy, Severe, Headache, 09/17/17) SEVERE PRESSURE IN HEAD, FELT LIKE EYE WERE GOING TO POP OUT, WELDING PROCESS SPECIALIST STATED TO PT IS IS AN ALLERGIC REACTION diphenhydramine (Verified Allergy, Severe, 11/05/17) gadobenic acid (Unverified Allergy, Severe, Headache, 09/17/17) SEVERE PRESSURE IN HEAD, FELT LIKE EYE WERE GOING TO POP OUT, WELDING PROCESS SPECIALIST STATED TO PT IS IS AN ALLERGIC REACTION gadodiamide (Unverified Allergy, Severe, Headache, 09/17/17) SEVERE PRESSURE IN HEAD, FELT LIKE EYE WERE GOING TO POP OUT, WELDING PROCESS SPECIALIST STATED TO PT IS IS AN ALLERGIC REACTION gadoteridol (Unverified Allergy, Severe, Headache, 09/17/17) SEVERE PRESSURE IN HEAD, FELT LIKE EYE WERE GOING TO POP OUT, WELDING PROCESS SPECIALIST STATED TO PT IS IS AN ALLERGIC REACTION iodixanol (Unverified Allergy, Severe, Headache, 09/17/17) SEVERE PRESSURE IN HEAD, FELT LIKE EYE WERE GOING TO POP OUT, WELDING PROCESS SPECIALIST STATED TO PT IS IS AN ALLERGIC REACTION iohexol (Unverified Allergy, Severe, Headache, 09/17/17) SEVERE PRESSURE IN HEAD, FELT LIKE EYE WERE GOING TO POP OUT, WELDING PROCESS SPECIALIST STATED TO PT IS IS AN ALLERGIC REACTION NSAIDS (Non-Steroidal Anti-Inflamma (Verified Allergy, Unknown, 11/05/17) diclofenac (Unverified Adverse Reaction, Severe, Bleeding, 09/17/17) etodolac (Unverified Adverse Reaction, Severe, Bleeding, 09/17/17) flurbiprofen (Unverified Adverse Reaction, Severe, Bleeding, 09/17/17) ibuprofen (Unverified Adverse Reaction, Severe, Bleeding, 09/17/17) indomethacin (Unverified Adverse Reaction, Severe, Bleeding, 09/17/17) ketoprofen (Unverified Adverse Reaction, Severe, Bleeding, 09/17/17) ketorolac (Unverified Adverse Reaction, Severe, Bleeding, 09/17/17) naproxen (Unverified Adverse Reaction, Severe, Bleeding, 09/17/17) oxaprozin (Unverified Adverse Reaction, Severe, Bleeding, 09/17/17) Past Medical History Denies any history of hypertension, diabetes History of questionable clotting disorder. 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 History of chronic pain per patient sees a pain management doctor., And has Dr. Moore as a primary care doctor Past Surgical History Right AKA 7 years ago Bowel resection from superior mesenteric infarction 2 years ago Reported Medications Currently active medications Seroquel 50 mg at bedtime Aspirin 325 mg daily Bactrim DS twice daily Keflex 500 mg every 8 Multivitamin p.o. daily Home meds Was on Keflex and Bactrim. Aspirin. Was on Dilaudid 4 mg p.o. every 6 Xanax 2 mg p.o. q. 8 Active Ordered Medications See EMR Family History Noncontributory Social History 1 pack per day smoking Positive methamphetamine IV drug use last use yesterday Denies any cocaine or alcohol use Physical Exam Vital Signs Vital Signs Date Time Temp Pulse Resp B/P (MAP) Pulse Ox O2 Delivery O2 Flow Rate FiO2 11/06/17 09:39 76 18 119/56 (77) 99 Room Air 11/06/17 02:22 73 20 106/53 (70) 98 Room Air 11/05/17 19:05 98.3 90 18 129/72 (91) Physical Exam GENERAL very angry hostile cursing SKIN: Multiple skin lei from old wounds from previous wound infections. Right abdominal area within in size wound dry, left forearm with mild induration with erythema HEAD: Atraumatic. Normocephalic. No temporal or scalp tenderness. EYES: Pupils equal round and reactive. Extraocular motions intact. No scleral icterus. No injection or drainage. ENT: Nose without bleeding, Throat without erythema, tonsillar hypertrophy or exudate. Uvula midline. Airway patent. NECK: Trachea midline. No JVD or lymphadenopathy. Supple, nontender, no meningeal signs. CARDIOVASCULAR: Regular rate and rhythm without murmurs, gallops, or rubs. RESPIRATORY: Clear to auscultation. Breath sounds equal bilaterally. No wheezes , rales, or rhonchi. GASTROINTESTINAL: Abdomen soft, positive bowel sounds, multiple well-healed abdominal scars. Good bowel sounds. Abdomen soft but very sensitive to even mild touch MUSCULOSKELETAL: Extremities without clubbing, cyanosis, or edema. No joint tenderness, effusion, or edema noted. No calf tenderness. Right AKA -well- healed stump NEUROLOGICAL: Awake and alert. Cranial nerves II through XII intact. Motor and sensory grossly within normal limits. Five out of 5 muscle strength in all muscle groups. Normal speech. Laboratory Laboratory Tests Test 11/05/17 19:57 11/05/17 21:44 Urine Opiates Screen POS Urine Barbiturates Screen NEG Urine Amphetamines Screen POS Urine Benzodiazepines Screen NEG Urine Cocaine Screen POS Urine Cannabinoids Screen NEG White Blood Count 7.2 Red Blood Count 3.71 Hemoglobin 11.2 Hematocrit 33.7 Mean Corpuscular Volume 90.9 Mean Corpuscular Hemoglobin 30.1 Mean Corpuscular Hemoglobin Concent 33.1 Red Cell Distribution Width 14.2 Platelet Count 454 Mean Platelet Volume 7.1 Neutrophils (%) (Auto) 66.6 Lymphocytes (%) (Auto) 21.2 Monocytes (%) (Auto) 7.6 Eosinophils (%) (Auto) 3.5 Basophils (%) (Auto) 1.1 Neutrophils # (Auto) 4.8 Lymphocytes # (Auto) 1.5 Monocytes # (Auto) 0.5 Eosinophils # (Auto) 0.3 Basophils # (Auto) 0.1 CBC Comment DIFF FINAL Differential Comment Blood Urea Nitrogen 8 Creatinine 0.96 Random Glucose 117 Total Protein 8.5 Albumin 3.2 Calcium Level 8.7 Alkaline Phosphatase 128 Aspartate Amino Transf (AST/SGOT) 24 Alanine Aminotransferase (ALT/SGPT) 21 Total Bilirubin 0.3 Sodium Level 135 Potassium Level 3.6 Chloride Level 101 Carbon Dioxide Level 24.0 Anion Gap 10 Estimat Glomerular Filtration Rate 65 Thyroid Stimulating Hormone 3rd Gen 0.945 Salicylates Level 2.8 Acetaminophen Level LESS THAN 2.0 Ethyl Alcohol Level LESS THAN 3 Result Diagram: 11/05/17214311/05/172143 Assessment and Plan Assessment and Plan 37-year-old female admitted under psychiatry services [employer] acted for suicidal ideations Multiple wounds history of frequent skin abscesses which patient lands with history of IV drug use methamphetamine use patient probably picking on her skin which is due to methamphetamine use. Possible left forearm abscess We will consult wound care team nurse for evaluation -for wound care recommendations. Monitor areas closely-for need for IND. We will continue on Keflex and Bactrim for now. Monitor for signs of systemic fever or chills. History of chronic pain. Percocet q 6 as needed for pain IV drug use methamphetamine. Patient counseled Cocaine +- patient counselled Thank you for this consult will follow patient in-house with you Discussed Condition With Patient and psychiatry staff nurse and Zion Corbin MD Nov 06, 2017 12:01
[2017-11-06] MEDS: SULFAMETHOXAZOLE-TRIMETHOPRIM DS 800-160 MG TAB PO SCH ×2 (12:07→21:00)
[2017-11-06] MEDS: CEPHALEXIN MONOHYDRATE 500 MG CAP PO SCH ×2 (12:08→16:00)
--- NOTE | 2017-11-06 13:30 | PD.WCN.NOT ---
Wound Consult Description: Wound consult ordered by for wound management Communicated with: Yessi Valente RN, Recommendation: 1. Cleanse L forearm,Right flank Right lower extremity stump with Hibiclens and normal saline .Rinse and pat dry. 2. Apply Maxorb cut to fit wound base to Left forearm,right flank and right lower extremity stump wound cover with dry dressing change every 3 days or as needed for dislodgement /exudate management 3. Sign and date all dressings. 4. Follow up with out patient wound center. Additional Information: Patient was seen today in [facility] by racebook writer for wound management.Patient alert and oriented x3 with increase agitation towards staff.patient gave verbal permission for racebook writer to assess abscess located on left forearm,right flank and right lower extremity stump.Dressings removed with out difficulty.Wounds cleansed with Hibiclens and rinsed pat dry.Patient has large draining abscess located on left distal forearm in which she lanced herself with X-acto knife prior to admission.Incision measures ~3.0cm with scant serosanguineous exudate noted with out odor.Mild erythema noted ~0.3cm circumferentially.Patient noted to have 2 intact small abscess to inner forearm Abscess measure ~2.0cm x~2.0cm x intact tissue.Induration noted to periwound cool to touch.no drainage odor noted.Patient has uncountable scars and trac lei on upper and lower extremities.Right flank abscess has ~4cm incision in which patient self inflicted prior to admission.Scant serosanguineous exudate noted with out odor.Mild erythema noted to periwound.All wounds cleansed with normal; saline pat dry clean dry absorbant dressings applied.Right lower extremity stump has device related ulcer measuring 1.8cm x 2.2cm x 0.2cm wound base is 75% moist white tissue 25%.Scant serous drainge noted without odor.Dry absorbant dressing applied till Maxorb available.Dressings signed and dated.Patient had no further questions or concern upon writers departure.Wound care supplies left in nurses station. RosekimberlyKike [facility] Nov 06, 2017 13:30
[2017-11-06] MEDS: LORazepam 2 MG TAB PO PRN ×4 (13:52→21:54)
[2017-11-06] MEDS: oxyCODONE/ACETAMINOPHEN 5 MG/325 MG TAB PO PRN ×2 (13:52→19:39)
[2017-11-06 18:35] VITALS: BP 131/55; PULSE 86; RESP 17
[2017-11-06] MEDS: LORazepam 2 MG/ML VIAL IM PRN (19:35)
[2017-11-06] MEDS ORDERED: QUEtiapine FUMARATE 100 MG TAB PO SCH (21:00)
[2017-11-06] MEDS ORDERED: HALOPERIDOL LACTATE 5 MG/ML AMP ONE (22:46)
[2017-11-06] MEDS ORDERED: diphenhydrAMINE HCL 50 MG/ML VIAL ONE (22:46)
[2017-11-06] MEDS ORDERED: HALOPERIDOL LACTATE 5 MG/ML AMP IM ONE (23:00)
[2017-11-06] MEDS ORDERED: diphenhydrAMINE HCL 50 MG/ML VIAL IM ONE (23:15)
[2017-11-07] MEDS: LORazepam 2 MG/ML VIAL IM PRN ×2 (00:03→06:48)
[2017-11-07] MEDS: oxyCODONE/ACETAMINOPHEN 5 MG/325 MG TAB PO PRN (01:58)
[2017-11-07 06:28] VITALS: BP 124/72; PULSE 111; RESP 18; TEMP 98.6; O2SAT 98
[2017-11-07] MEDS: THIAMINE HCL 100 MG TAB PO SCH (09:08)
[2017-11-07] MEDS: SULFAMETHOXAZOLE-TRIMETHOPRIM DS 800-160 MG TAB PO SCH (09:08)
[2017-11-07] MEDS: ASPIRIN 325 MG TAB PO SCH (09:09)
[2017-11-07] MEDS: CEPHALEXIN MONOHYDRATE 500 MG CAP PO SCH ×2 (09:09)
[2017-11-07] MEDS: MULTIVITAMINS/MINERALS THERAPEUTIC TAB PO SCH (09:09)
[2017-11-07] MEDS: FOLIC ACID 1 MG TAB PO SCH (09:09)
[2017-11-07] MEDS ORDERED: QUET1TAB8 PO (12:20)
--- NOTE | 2017-11-07 12:21 | HHI.DS ---
Psychiatry Discharge Summary Inpatient Psychiatric care?: Yes Advance Directive: No Reason Not Provided: Due to Patient Condition Mental Health AdvanceDirective: No Health Care Proxy: No Admission Admission Date Nov 06, 2017 at 07:49 Admission Diagnosis: (1) Adjustment disorder with depressed mood ICD Code: F43.21 - Adjustment disorder with depressed mood (2) Polysubstance abuse ICD Code: F19.10 - Other psychoactive substance abuse, uncomplicated Brief History Ms. Bowden is a 37-year-old female with a reported history of bipolar disorder and substance use issues who presents under a [employer] act by law enforcement alleging suicidal ideation. Patient's urine toxicology was positive for opiates , amphetamines and cocaine. Reviewing the electronic medical record, I note that the patient was seen most recently by the psychiatric nurse practitioner in 2016. Patient seen and examined. Chart reviewed. Case discussed with nursing staff. On my examination today, the patient is somewhat medication seeking for controlled substances. Presentation is somewhat manipulative. She appears quite dysphoric though and says "I am exceptionally depressed right now. I have no desire to continue. I am tired of hurting right now." She says that she tried to overdose by snorting 1 g of heroin 2 days ago in a reported suicide attempt. Patient notes that she is "quite pissed off that I woke up." She endorses ongoing suicidal ideation but denies any urge to hurt herself on the inpatient unit. She says that she is coming here to look for help for her psychiatric condition. No hypomanic or manic symptoms now. She denies any audiovisual hallucinations. She does say that she struggles with some intermittent paranoia but says that this comes with using methamphetamine. Remainder of the psychiatric ROS is negative. Patient has chronic pain complaints but no acute physical complaints. Past psychiatric history: The patient reports a history of bipolar disorder. She is not under the care of an outpatient psychiatrist presently. Most recent psychiatric admission was reportedly a few years ago. Most recent suicide attempt was approximately 2 days ago as noted above. Patient notes that she has been on lithium in the past but struggled with therapeutic blood level monitoring with this agent because of difficulty in finding an adequate vein secondary to her substance use history. Family history: Patient denies any family history of mental illness or suicide. Chemical dependency history: Patient maintains that her use of Dilaudid and Xanax is appropriate. She does admit to abuse of amphetamines and cocaine noting "I abuse them very much." No other substance use reported. Social history: Patient lives with friends. She is single with no children. She is college educated and reports that she has previously worked as a nurse and also doing [employer]. She denies any history. Denies any active legal issues. Denies any access to guns or firearms. Denies any sabianism or spiritual beliefs. Denies any history of physical, verbal or sexual abuse. E-FORCSE report reviewed: Multisourcing noted. Early refills noted Rx Fill Date Drug Name Qty Days Prescriber First Name Prescriber Last Name 10/30/2017 HYDROMORPHONE 4 MG TABLET 24 4 SANDEE WOODS MD 10/30/2017 ALPRAZOLAM 2 MG TABLET 24 8 SANDEE WOODS MD 10/23/2017 BUPRENORPHINE 8 MG TABLET SL 15 7 DEVEN CHAVES JR, MD 09/19/2017 ALPRAZOLAM 2 MG TABLET 24 8 SANDEE WOODS MD 09/19/2017 HYDROMORPHONE 4 MG TABLET 24 5 SANDEE WOODS MD 08/30/2017 HYDROMORPHONE 4 MG TABLET 24 4 Sandee Woods 08/30/2017 ALPRAZOLAM 2 MG TABLET 24 8 Sandee Woods 06/24/2017 HYDROMORPHONE 4 MG TABLET 24 4 Sandee Woods 06/24/2017 ALPRAZOLAM 2 MG TABLET 30 10 Sandee Woods 06/20/2017 ZOLPIDEM TARTRATE 10 MG TABLET 30 30 Winston Morocho 06/17/2017 EMBEDA ER 20-0.8 MG CAPSULE 60 30 Winston Fitzpatrick 06/16/2017 ALPRAZOLAM 1 MG TABLET 10 3 Trixie Salazar 06/11/2017 OXYCODONE-ACETAMINOPHEN 10-325 90 30 Winston Fitzpatrick 06/03/2017 EMBEDA ER 20-0.8 MG CAPSULE 30 15 Winston Fitzpatrick 05/17/2017 METHADONE HCL 10 MG TABLET 42 14 Winston Fitzpatrick 05/14/2017 OXYCODONE-ACETAMINOPHEN 10-325 90 30 Winston Fitzpatrick 05/13/2017 ALPRAZOLAM 1 MG TABLET 18 3 Virgilio Prince 05/12/2017 ALPRAZOLAM 2 MG TABLET 30 10 Sandee Woods 05/08/2017 HYDROMORPHONE 4 MG TABLET 30 5 [facility] 05/04/2017 ALPRAZOLAM 2 MG TABLET 30 10 [facility] 05/04/2017 HYDROMORPHONE 8 MG TABLET 18 3 [facility] 04/30/2017 HYDROMORPHONE 4 MG TABLET 30 5 [facility] 04/24/2017 ZOLPIDEM TARTRATE 10 MG TABLET 30 30 [facility] 04/24/2017 ALPRAZOLAM 2 MG TABLET 24 8 [facility] 04/23/2017 HYDROMORPHONE 4 MG TABLET 24 6 [facility] 04/21/2017 ALPRAZOLAM 2 MG TABLET 30 10 [facility] 04/18/2017 HYDROMORPHONE 4 MG TABLET 30 5 [facility] 04/12/2017 ALPRAZOLAM 2 MG TABLET 30 10 [facility] 04/12/2017 HYDROMORPHONE 4 MG TABLET 24 4 [facility] 04/05/2017 HYDROMORPHONE 8 MG TABLET 30 5 Kamari Holm 04/05/2017 ALPRAZOLAM 2 MG TABLET 21 7 Kamari Holm 03/02/2017 HYDROMORPHONE 8 MG TABLET 30 5 Rajpiper Pachala 03/02/2017 ALPRAZOLAM 2 MG TABLET 15 5 Rajpiper Pachala 02/27/2017 ZOLPIDEM TARTRATE 10 MG TABLET 30 30 [facility] 02/15/2017 ALPRAZOLAM 2 MG TABLET 30 10 [facility] 02/15/2017 HYDROMORPHONE 4 MG TABLET 30 5 [facility] 02/09/2017 HYDROMORPHONE 8 MG TABLET 30 5 Kamari Holm 02/09/2017 ALPRAZOLAM 2 MG TABLET 24 6 Kamari Holm 02/02/2017 OXYCODONE-ACETAMINOPHEN 10-325 20 5 Ariadna Mclaughlin 01/29/2017 OXYCODONE-ACETAMINOPHEN 5-325 12 2 Mukul Nuñez 01/23/2017 HYDROMORPHONE 4 MG TABLET 6 1 [facility] 01/22/2017 HYDROMORPHONE 4 MG TABLET 120 10 Go Prince 01/20/2017 ALPRAZOLAM 2 MG TABLET 30 7 [facility] 01/17/2017 HYDROMORPHONE 4 MG TABLET 120 6 [facility] 01/14/2017 ALPRAZOLAM 2 MG TABLET 2 1 [facility] 01/13/2017 HYDROMORPHONE 4 MG TABLET 90 6 [facility] 01/10/2017 HYDROMORPHONE 4 MG TABLET 3 1 [facility] 01/10/2017 ALPRAZOLAM 2 MG TABLET 1 1 [facility] 01/09/2017 HYDROMORPHONE 4 MG TABLET 60 3 [facility] 01/05/2017 HYDROMORPHONE 4 MG TABLET 60 3 [facility] 01/01/2017 ALPRAZOLAM 2 MG TABLET 60 15 [facility] 01/01/2017 HYDROMORPHONE 4 MG TABLET 60 3 [facility] 12/28/2016 HYDROMORPHONE 4 MG TABLET 60 3 [facility] 12/27/2016 HYDROMORPHONE 4 MG TABLET 30 3 [facility] 12/24/2016 HYDROMORPHONE 4 MG TABLET 30 3 [facility] 12/20/2016 HYDROMORPHONE 4 MG TABLET 60 5 [facility] 12/19/2016 ALPRAZOLAM 2 MG TABLET 60 15 [facility] 12/15/2016 HYDROMORPHONE 4 MG TABLET 60 5 [facility] 12/12/2016 HYDROMORPHONE 4 MG TABLET 60 5 [facility] 12/08/2016 HYDROMORPHONE 4 MG TABLET 60 5 [facility] 12/05/2016 HYDROMORPHONE 4 MG TABLET 60 5 [facility] 12/04/2016 HYDROMORPHONE 4 MG TABLET 60 5 [facility] 12/02/2016 ALPRAZOLAM 2 MG TABLET 60 15 [facility] 11/27/2016 HYDROMORPHONE 4 MG TABLET 19 1 [facility] 11/27/2016 HYDROMORPHONE 4 MG TABLET 90 7 [facility] 11/21/2016 HYDROMORPHONE 4 MG TABLET 120 6 [facility] 11/15/2016 ALPRAZOLAM 2 MG TABLET 44 15 [facility] 11/14/2016 ALPRAZOLAM 2 MG TABLET 4 15 [facility] 11/13/2016 ALPRAZOLAM 2 MG TABLET 12 15 [facility] 11/13/2016 HYDROMORPHONE 4 MG TABLET 120 6 Go [facility] 11/06/2016 HYDROMORPHONE 4 MG TABLET 120 6 Go [facility] Tobacco Use In Past 30 Days: 5 or More Cigarettes/Day Alcohol Use: 4 or More Times Per Week Hospital Course Patient was admitted to a locked, inpatient psychiatric unit. A general medical consultation was obtained. Appropriate precautions were in place throughout patient's hospital stay. Patient was seen and examined on the unit by psychiatry and also visited by counselor. Psychotropic medications were adjusted. There was no evidence of any suicidality or homicidality on the inpatient unit. There was no evidence of self-care deficit secondary to mental illness as defined under the [employer] act. Patient was verbally abusive to staff and did engage in acting out behavior, apparently in service of driving up her CIWA score (which rates agitation) and thereby obtaining Ativan. She admitted to nursing staff that she has been regularly abusing IV heroin and methamphetamine (i.e. her use of the heroin did not represent a suicide attempt as she had initially presented it, but rather is part of a pattern of substance abuse). It is clear that the patient was malingering psychiatric symptoms to obtain controlled substances on the inpatient unit. On the day of discharge: Patient seen and examined with nurse. Chart reviewed. Case discussed with nursing staff. On my examination today, patient admits that her presentation to the ED was driven by search for substances of abuse. She is mildly sedated from withdrawal medications provided to her overnight but is coherent and able to participate in valid interview. There is no evidence of ongoing withdrawal at present, nor is there evidence of withdrawal delirium. Given her obvious issues with substance use disorder, I have asked patient to allow us to get her to an inpatient chemical dependency treatment facility today. She has verbalized "100%" commitment this morning to obtaining substance use treatment and verbalizes agreement with referral for inpatient chemical dependency treatment. However, after the counselor has made the appropriate referrals, the patient then declines any sort of chemical dependency treatment and insists on discharge. She denies any suicidal or homicidal ideation, intent or plan. She has no depressive or hypomanic/manic symptoms, nor is there any evidence of psychosis. Indeed, there is no evidence of unstable mental illness as defined under the Seals act in this patient at this time. Her sole issues do seem to be substance related. Consequently, the patient does not meet criteria for involuntary psychiatric hospitalization. She is insisting on discharge from the inpatient unit today, and I have no basis to retain her over her objection. I will discharge her AGAINST MEDICAL ADVICE. Psychiatric follow-up as arranged by counselor. Patient is also to follow up with primary care and with wound care. Patient to return to psychiatric emergency room as part of a general safety plan. With the benefit of observation, malingering for controlled substances is the discharge diagnosis in the present case, along with substance use disorder. Results Blood Pressure 124 / 72 Vital Signs Date Time Temp Pulse Resp B/P (MAP) Pulse Ox O2 Delivery O2 Flow Rate FiO2 11/07/17 06:28 98.6 111 18 124/72 (89) 98 11/06/17 09:39 Room Air Laboratory Tests Test 11/05/17 19:57 11/05/17 21:44 Urine Opiates Screen POS (NEG) Urine Amphetamines Screen POS (NEG) Urine Cocaine Screen POS (NEG) Red Blood Count 3.71 MIL/MM3 (4.00-5.30) Hemoglobin 11.2 GM/DL (11.6-15.3) Hematocrit 33.7 % (35.0-46.0) Platelet Count 454 TH/MM3 (150-450) Random Glucose 117 MG/DL (74-106) Total Protein 8.5 GM/DL (6.4-8.2) Albumin 3.2 GM/DL (3.4-5.0) Alkaline Phosphatase 128 U/L (45-117) Sodium Level 135 MEQ/L (136-145) Estimat Glomerular Filtration Rate 65 ML/MIN (>89) Acetaminophen Level LESS THAN 2.0 MCG/ML Summary of Procedures None done Imaging None done Pending results at discharge: No Medications # of Antipsychotic meds at D/C: 1 Approp Antipsych med options 1 - Minimum of three failed multiple trials of monotherapy. 2 - Documented plan to taper to monotherapy due to previous use of multiple meds OR cross-taper in progress at D/C. 3 - Documentation of augmentation of Clozapine. 4 - Justification other than those listed in allowable values 1-3, document here : Discharge Discharge Date: Nov 07, 2017 Discharge Diagnosis: (1) Malingering Diagnosis: Principal (For controlled substances) ICD Code: Z76.5 - Malingerer [conscious simulation] (2) Polysubstance dependence Diagnosis: Secondary (Counseled to quit) ICD Code: F19.20 - Other psychoactive substance dependence, uncomplicated Pt Condition on Discharge: Guarded (Because AMA discharge) Discharge Disposition: Discharge Home Discharge Instructions Diet Instructions: As Tolerated, No Restrictions Activities you can perform: Weight Bearing as Alpa Scheduled Appointment: As per counselors notes New Orders: BASIC METABOLIC PROF CBC WITH DIFF - 1 Week COMP MET PROF (CMP) - 1 Week New Medications: Quetiapine (Quetiapine) 100 Mg Tab 50 MG PO HS for Mental Health for 5 Days, TAB 5 Refills Continued Medications: Aspirin (Aspirin) 325 Mg Tab 325 MG PO DAILY, #30 TAB 0 Refills Cephalexin (Keflex) 500 Mg Cap 500 MG PO Q8H for Infection for 7 Days, #21 CAP 0 Refills Sulfamethoxazole-Trimethoprim (Bactrim DS) 800-160 Mg Tab 1 TAB PO BID for Infection for 7 Days, #14 TAB 0 Refills Discontinued Medications: Alprazolam (Xanax) 2 Mg Tab 2 MG PO Q8H PRN for ANXIETY, TAB 0 Refills Hydromorphone (Dilaudid) 4 Mg Tab 4 MG PO Q6H PRN for Pain Management, TAB 0 Refills Discharge Time <= 30 minutes Mental Status Examination Appearance: Disheveled Consciousness: Alert Orientation: x4 Motor Activity: Other (No motor abnormalities noted. No signs of GABAergic or opiate withdrawal.) Speech: Unremarkable Language: Adequate Fund of Knowledge: Adequate Attention and Concentration: Adequate Memory: Unremarkable (Grossly intact on clinical exam) Mood: Other (Calm) Affect: Blunt Thought Process & Associations: Intact, Logical, Linear Thought Content: Appropriate Hallucination Type: None Delusion Type: None Suicidal Ideation: No Suicidal Plan: No Suicidal Intention: No Homicidal Ideation: No Homicidal Plan: No Homicidal Intention: No Insight: Poor Judgment: Poor Mental Status Exam Remarks Insight and judgment are likely chronically poor, particularly with respect to substance use issues Discharge/Advance Care Plan Health Problems: (1) Adjustment disorder with depressed mood (2) Polysubstance abuse Goals to promote your health * To prevent worsening of your condition and complications * To maintain your health at the optimal level Directions to meet your goals Take your medications as prescribed Follow your dietary instruction Follow activity as directed Keep your appointments as scheduled Take your immunizations and boosters as scheduled If your symptoms worsen call your PCP, if no PCP go to Urgent Care Center or Emergency Room For 17/12 questions related to your inpatient stay or results of tests pending at discharge, please contact Dr. Luis Crockett at Smoking is Dangerous to Your Health. Avoid second hand smoking Luis Crockett MD Nov 07, 2017 12:21
--- NOTE | 2017-11-07 13:24 | HHI.PR ---
Subjective Remarks patient wanting to go home discharge AMA by Dr. kaplan d/w patient- her Mom is taking her home no fever or chills d/w her to stoppe IV drug use- appears motivated Objective Vitals Vital Signs Date Time Temp Pulse Resp B/P (MAP) Pulse Ox O2 Delivery O2 Flow Rate FiO2 11/07/17 06:28 98.6 111 18 124/72 (89) 98 11/06/17 18:35 86 17 131/55 (80) I/O 11/06/17 11/06/17 11/06/17 11/07/17 11/07/17 11/07/17 07:00 15:00 23:00 07:00 15:00 23:00 Intake Total 240 ml Balance 240 ml Intake Oral 240 ml Result Diagram: 11/05/17214311/05/172143 Objective Remarks awake and alert, oriented x 3 aniceric lungs- clear regular rhythm abdomen soft skin/UE- multiple soft tissue, skin abscesses, A/P Assessment and Plan 37-year-old female admitted under psychiatry services [employer] acted for suicidal ideations Multiple wounds history of frequent skin abscesses which patient lands with history of IV drug use methamphetamine use patient probably picking on her skin which is due to methamphetamine use. left forearm abscesses We will consult wound care team nurse for evaluation -for wound care recommendations. Monitor areas closely- We will continue on Keflex and Bactrim . Monitor for signs of systemic fever or chills. History of chronic pain. Percocet q 6 as needed for pain IV drug use methamphetamine. Patient counseled Cocaine +- patient counselled patient is being DC agfainst medical advise by primary service d/w patient to ff up as OP with a PCP - may eventually need I and D. I told her that I would write for her oral anitibitoics and advise her to ff up with OP reinforce IV drug use discontinuation advise her to ff up with our wound care clinic Zion Tijerina MD Nov 07, 2017 13:24
--- NOTE | 2017-11-07 18:31 | EKG ---
Date Performed: 11/07/2017 Time Performed: 08:24:52 PTAGE: 37 years EKG: Sinus rhythm NORMAL ECG PREVIOUS TRACING : 01/05/2015 15.11 Since the previous tracing, no significant change noted DOCTOR: Leona Dc Interpretating Date/Time 11/07/2017 18:29:19
== END 2017-11-07 15:00 | disposition left against medical advice (07) | DRG 881 ==
LOC: NEDAMB 18:41 → NEDA 11-06 07:49 → H270 11-06 13:00 → H4EA 11-06 20:13
PROVIDERS: ADMIT Psychiatry & Neurology Psychiatry; ATTEND Psychiatry & Neurology Psychiatry
DX: F43.21 Adjustment disorder with depressed mood (principal); R45.851 Suicidal ideations; L02.414 Cutaneous abscess of left upper limb; F17.210 Nicotine dependence, cigarettes, uncomplicated; G89.29 Other chronic pain; F19.10 Other psychoactive substance abuse, uncomplicated; Z91.5 Personal history of self-harm; Z79.82 Long term (current) use of aspirin; Z79.899 Other long term (current) drug therapy; Z88.6 Allergy status to analgesic agent; Z88.1 Allergy status to other antibiotic agents; Z88.8 Allergy status to other drugs, medicaments and biological substances; Z76.5 Malingerer [conscious simulation]
CPT/HCPCS: 36600; 80053; 80307; 84443; 84703; 85025; 90471; 90714; 93005; J1200; J1630; J2060